=== PATIENT | female | born 1935 | race Caucasian/White ===

== ENCOUNTER → 2022-12-14 | Outpatient (REF) | payer OTHER, SELFPAY ==
[2022-12-14 09:13] LABS: Hematocrit 37.1 % (37-47); Hemoglobin 12.9 g/dL (12.0-15.0); Mean Corp Hgb Conc 34.8 g/dL (32-36); Mean Corpuscular Hgb 30.3 pg (27.0-32.0); Mean Corpuscular Volume 87.1 fL (81-99); Platelet Count 308 K/mm3 (150-450); RBC Distribution Width CV 13.2 % (11.6-14.6); RBC Distribution Width SD 42.4 fl (35.1-43.9); Red Blood Count 4.26 M/mm3 (4.2-5.4); White Blood Count 7.2 K/mm3 (4.4-11.0)
[2022-12-14 09:56] LABS: Anion Gap 9 (5-15); BUN 21 mg/dL (7-18); Calcium,Total 8.7 mg/dL (8.5-10.1); Chloride 86 mmol/L (98-107); Creatinine, Serum 0.62 mg/dL (0.55-1.02); EST Glomerular Filtration Rate 98 mL/min (>60); Est Glom Filt Rate - Afr Amer 118 mL/min (>60); Glucose 114 mg/dL (74-106); Potassium 4.7 mmol/L (3.5-5.1); Sodium Level 120 mmol/L (136-145); Thyroid Stim Hormone (TSH) 0.94 uIU/mL (0.358-3.74)
== END ==
LOC: OLS.SANC 05:54
PROVIDERS: Visit Provider Internal Medicine
DX: I11.0 Hypertensive heart disease with heart failure (principal); I50.9 Heart failure, unspecified; J44.9 Chronic obstructive pulmonary disease, unspecified; E78.5 Hyperlipidemia, unspecified; E11.9 Type 2 diabetes mellitus without complications
CPT/HCPCS: 36415; 80048; 82306; 84443; 85027

== ENCOUNTER → 2022-12-15 | Outpatient (REF) | payer MEDICARE, SELFPAY ==
[2022-12-15 14:58] LABS: Anion Gap 7 (5-15); BUN 24 mg/dL (7-18); BUN/Creat Ratio 27.8 RATIO (10-20); Calcium,Total 8.4 mg/dL (8.5-10.1); Chloride 88 mmol/L (98-107); Creatinine, Serum 0.86 mg/dL (0.55-1.02); EST Glomerular Filtration Rate 66 mL/min (>60); Est Glom Filt Rate - Afr Amer 80 mL/min (>60); Glucose 150 mg/dL (74-106); Sodium Level 116 mmol/L (136-145)
== END ==
LOC: OLS.SANC 14:00
PROVIDERS: Visit Provider Internal Medicine
DX: E87.1 Hypo-osmolality and hyponatremia (principal)
CPT/HCPCS: 36415; 80048

== ENCOUNTER → 2023-01-02 | Outpatient (REF) | payer MEDICARE, SELFPAY ==
[2023-01-02 08:38] LABS: Hematocrit 32.8 % (37-47); Hemoglobin 11.1 g/dL (12.0-15.0); Mean Corp Hgb Conc 33.8 g/dL (32-36); Mean Corpuscular Hgb 31.6 pg (27.0-32.0); Mean Corpuscular Volume 93.4 fL (81-99); Mean Platelet Vol. 9.7 fl (6.2-12.0); Platelet Count 367 K/mm3 (150-450); RBC Distribution Width CV 14.7 % (11.6-14.6); RBC Distribution Width SD 50.3 fl (35.1-43.9); Red Blood Count 3.51 M/mm3 (4.2-5.4); White Blood Count 6.9 K/mm3 (4.4-11.0)
[2023-01-02 08:51] LABS: ALB/GLOB Ratio 0.9 RATIO (0.9-2.4); AST(SGOT) 28 U/L (15-37); Alanine Aminotransfer ALT/SGPT 54 U/L (13-56); Alkaline Phosphatase 111 U/L (45-117); Anion Gap 5 (5-15); BUN 26 mg/dL (7-18); BUN/Creat Ratio 36.7 RATIO (10-20); Calcium,Total 9.4 mg/dL (8.5-10.1); Chloride 104 mmol/L (98-107); Creatinine, Serum 0.71 mg/dL (0.55-1.02); EST Glomerular Filtration Rate 83 mL/min (>60); Est Glom Filt Rate - Afr Amer 101 mL/min (>60); Globulin 3.3 g/dL (2.2-4.2); Glucose 124 mg/dL (74-106); Protein, Total 6.3 g/dL (6.4-8.2); Sodium Level 136 mmol/L (136-145)
== END ==
LOC: OLS.SANC 05:00
PROVIDERS: Visit Provider Internal Medicine
DX: E11.9 Type 2 diabetes mellitus without complications (principal); I10 Essential (primary) hypertension
CPT/HCPCS: 36415; 80053; 85027

== ENCOUNTER → 2023-01-17 | Outpatient (REF) | payer MEDICARE, SELFPAY ==
[2023-01-17 10:01] LABS: Anion Gap 6 (5-15); BUN 25 mg/dL (7-18); BUN/Creat Ratio 32.9 RATIO (10-20); Calcium,Total 9.1 mg/dL (8.5-10.1); Chloride 106 mmol/L (98-107); Creatinine, Serum 0.76 mg/dL (0.55-1.02); EST Glomerular Filtration Rate 77 mL/min (>60); Est Glom Filt Rate - Afr Amer 93 mL/min (>60); Glucose 115 mg/dL (74-106); Potassium 3.8 mmol/L (3.5-5.1); Sodium Level 140 mmol/L (136-145)
== END ==
LOC: OLS.SANC 05:00
PROVIDERS: Visit Provider Internal Medicine
DX: I11.0 Hypertensive heart disease with heart failure (principal); I50.9 Heart failure, unspecified; J44.9 Chronic obstructive pulmonary disease, unspecified; E78.5 Hyperlipidemia, unspecified; E11.9 Type 2 diabetes mellitus without complications
CPT/HCPCS: 36415; 80048

== ENCOUNTER 2023-02-14 16:57 | Observation (INO) | payer MEDICARE, SELFPAY ==
[2023-02-14 17:02] VITALS: BP 159/107; PULSE 77; RESP 18; TEMP 36.2; O2SAT 94; BMI 25.9
--- NOTE | 2023-02-14 17:36 | CT_ITS ---
STUDY: CT BRAIN WITHOUT CONTRAST REASON FOR EXAM: Female, 87 years old. Headache RADIATION DOSAGE (If Supplied By Facility): CTDIvol = ( 44.99 ) mGy, DLP = ( 796.11 ) mGycm TECHNIQUE: Transaxial CT imaging of the brain was performed without administration of intravenous contrast material. Individualized dose optimization techniques were used for this CT. COMPARISON: No relevant priors. FINDINGS: Normal soft tissue structures. Normal calvarium. Normal size ventricles and extra-axial spaces for the patient''s age. There are areas of decreased attenuation within the white matter tracts of the supratentorial brain, consistent with microvascular disease changes. Normal basal ganglia and thalami. Normal brainstem. Normal cerebellum. There is no intracranial hemorrhage. There are no findings of an acute ischemic infarction. Normal visualized paranasal sinuses. CT/Brain/Head without Contrast IMPRESSION: Chronic involutional changes of the brain. Electronically Signed: Dewey Banks MD at 18:33 EST ,
--- NOTE | 2023-02-14 17:36 | EKG12_ITS ---
Test Reason : WEAKNESS Blood Pressure : / mmHG Vent. Rate : 073 BPM Atrial Rate : 073 BPM P-R Int : 136 ms QRS Dur : 088 ms QT Int : 434 ms P-R-T Axes : 043 -52 091 degrees QTc Int : 478 ms Normal sinus rhythm Left anterior fascicular block Moderate voltage criteria for LVH, may be normal variant ( R in aVL , Manoj product ) Nonspecific ST and T wave abnormality Prolonged QT Abnormal ECG Confirmed by SKIP RODGERS, KANDACE ([id number]), assistant film editor STORMY ABEBE ([id number]) on 02/20/2023 1:40:44 P M Referred By: Confirmed By:RADHA VALDIVIA MD
--- NOTE | 2023-02-14 17:38 | EDS_ITS ---
HPI History of Present Illness Chief Complaint: Weakness Informant: patient Narrative Narrative: Presents by EMS from home. She lives with her daughter. Reports progressive weakness over the 5 to 6 months. She ambulates with a rollator at baseline. Today had a lot more difficulty stating took all my energy to get up. New headache today denies head trauma. Denies cough. Denies vomiting diarrhea. States occasional hot and cold feelings however none currently. She states has changed from urine frequency to decreased urine output and that is normal for her. Denies dysuria. History of hypertension on medications but cannot recall her medications. She states she is on sodium tabs. There is been no falls. States she has generalized weakness. [facility] Medical History (Updated 02/14/23 @ 22:[address] Katharine Sotro MD) Anxiety Chronic constipation Chronic hyponatremia GERD (gastroesophageal reflux disease) HLD (hyperlipidemia) HTN (hypertension) Home Medications albuterol sulfate 2.5 mg/3 mL (0.083 %) solution for nebulization mg 02/14/23 [History Last Taken Unknown] aspirin 81 mg tablet,delayed release (Adult Low Dose Aspirin) 81 mg PO DAILY 02/14/23 [History Last Taken Unknown] atorvastatin 40 mg tablet 40 mg PO DAILY 02/14/23 [History Last Taken Unknown] buspirone 10 mg tablet 10 mg PO DAILY 02/14/23 [History Last Taken Unknown] carvedilol 25 mg tablet 25 mg PO BID 02/14/23 [History Last Taken Unknown] doxycycline monohydrate 100 mg tablet 100 mg PO BID 02/14/23 [History Last Taken Unknown] gabapentin 400 mg capsule 400 mg PO TID 02/14/23 [History Last Taken Unknown] lisinopril 40 mg tablet 40 mg PO DAILY 02/14/23 [History Last Taken Unknown] omeprazole 20 mg capsule,delayed release 20 mg PO BID 02/14/23 [History Last Taken Unknown] sodium chloride 1,000 mg soluble tablet 1,000 mg PO TID 02/14/23 [History Last Taken Unknown] torsemide 10 mg tablet 10 mg PO DAILY 02/14/23 [History Last Taken Unknown] Allergy/AdvReac Type Severity Reaction Status Date / Time No Known Allergies Allergy Verified 02/14/23 17:05 Family History (Updated 02/14/23 @ 22:[address] Katharine Sorto MD) Mother Lung cancer COPD (chronic obstructive pulmonary disease) Father Heart disease Hypertension CAD (coronary artery disease) Myocardial infarction Surgical History (Updated 02/14/23 @ 22:[address] Katharine Sorto MD) History of tubal ligation S/P appendectomy Social History (Updated 02/14/23 @ 22:[address] Katharine Sorto MD) household members: other details: Her daughter lives with her but works 10 hours/day thus is gone frequently. Smoking Status: Never smoker second hand exposure: Yes alcohol intake: never substance use type: does not use ROS ROS ED Constitutional Constitutional ED: Denies chills, fever(s) or sweats Eyes Eyes: Denies change in vision ENT ENT ED: Denies dysphagia or sore throat Cardiovascular Cardiovascular: Denies chest pain, leg edema, palpitations or racing heartbeat Respiratory/Chest Respiratory/Chest: Denies cough, dyspnea or dyspnea on exertion Gastrointestinal Gastrointestinal: Denies abdominal pain, diarrhea, nausea or vomiting Genitourinary Genitourinary ED: Denies dysuria, hematuria or urinary frequency Musculoskeletal Musculoskeletal: Denies back pain, extremity pain or neck pain Integumentary Denies rash or wounds Neurologic Neurologic: Reports headache(s) and weakness; Denies paresthesias EXAM Physical Exam Const Vital Signs: 02/14/23 17:02 02/14/23 17:07 02/14/23 21:15 Temperature 97.2 F L Temperature Source Oral Pulse Rate 77 88 Respiratory Rate 18 18 Respiratory Effort Normal Non-Labored Respiratory Pattern Normal Blood Pressure 159/107 H 170/106 H Blood Pressure Mean 124 127 Pulse Ox 94 Oxygen Delivery Method Room Air Room Air 02/14/23 21:41 Temperature Temperature Source Pulse Rate Respiratory Rate Respiratory Effort Respiratory Pattern Blood Pressure 192/77 H Blood Pressure Mean 115 Pulse Ox Oxygen Delivery Method Positive well nourished and well developed General Appearance ED: well developed and NAD HEENT HEENT Narrative: Mild dry mucosal membranes normocephalic and atraumatic Eyes PERRL, EOMs intact bilaterally and conjunctivae normal General Eye ED: Yes normal appearance of both eyes Neck no lymphadenopathy and supple Neck Narrative: No meningismus General: Negative for tenderness Chest Wall Chest: Negative for tenderness Resp normal respiratory effort and normal air movement Effort and Inspection: symmetric chest movement; Negative for respiratory d istress Cardio regular rate, regular rhythm and no murmurs Peripheral Pulses: pulses 2+ throughout GI normal to inspection, nondistended, normoactive bowel sounds and non-tender Palpation: Negative for guarding or rebound tenderness present Back/Spine no CVA tenderness and no thoracic nor lumbar tenderness Extremity normal to inspection General Extremety ED: Negative for edema or tenderness General Extremity: Negative for edema Neuro oriented x3, CN's II-XII intact bilaterally and no sensory deficits noted Sensorium / Orientation: awake and alert Skin no rashes or lesions noted and no wounds MDM MDM MDM Narrative Medical decision making narrative: Interventions / MDM: Differential diagnosis: Infectious findings, electrolyte abnormalities Diagnosis considered but do not suspect: Intracranial hemorrhage however CT negative. Pneumonia however CT chest also negative. My EKG interpretation: Sinus rate of 73, no ST or T wave changes. LVH according to voltage criteria. Imaging independently reviewed and interpreted by myself: CT brain: No acute process. Chest x-ray 2 views: Question right middle lobe infiltrate or atelectasis per radiology. CTA chest: No PE, no infiltrates left lower lobe scarring. External documents reviewed: N/A Test considered but not ordered:N/A ED course: Patient presenting progressive weakness nontraumatic headache. No cough or urine symptoms. Workup initiated. CT brain labs COVID testing and urine along with 2 view chest x-ray. 2 view chest x-ray per radiology concerns for right middle lobe collapse lung or infiltrative findings. Recommend CT scan. This was ordered for further evaluation. In the interim, daughter did come to the emergency department stating she was at [facility] 3 days ago she is currently on antibiotics for pneumonia however denied any cough symptoms at that time. She is had generalized weakness with no falls. Labs normal white count hemoglobin 13.4 COVID and flu negative urine only notes 25 leukocytes, culture sent. Potassium 3.4. Creatinine 0.82. Potassium was orally replaced. CTA chest negative for infiltrates there is noted scarring's. She is not hypoxic. 2149: Attempted ambulation by nursing with a walker, she went up bedside was too weak per nursing unsteady. She bedside commode was used. Patient with generalized weakness no clear findings. Will discuss with hospitalist service for admission for therapy evaluation for rehab. Discussed plan of care with patient and daughter who understands. Discussed with Dr. Sorto for admission. Re-evaluation: stable Disposition discussed with patient/family/significant other: Patient and daughter Case discussed with consulting clinician: Hospitalist This note was generated with [employer] dictation software. It may contain incorrect words, spelling, and punctuation that were not noted in checking the note before signing. Lab Data Attestation: I reviewed the patient's lab results. Labs: Laboratory Results - last 24 hr 02/14/23 02/14/23 18:00 18:05 WBC 6.0 RBC 4.33 Hgb 13.4 Hct 40.6 MCV 93.8 MCH 30.9 MCHC 33.0 RDW Std Deviation 49.2 H RDW Coeff of Champ 14.3 Plt Count 337 MPV 9.6 Immature Gran % (Auto) 0.200 Neut % (Auto) 75.0 H Lymph % (Auto) 15.1 L [place] % (Auto) 8.1 Eos % (Auto) 1.3 Baso % (Auto) 0.3 Absolute Neuts (auto) 4.5 Absolute Lymphs (auto) 0.90 Nucleated RBC % 0 Sodium 141 Potassium 3.4 L Chloride 104 Carbon Dioxide 31.0 Anion Gap 6 BUN 17 Creatinine 0.82 Estim Creat Clear Calc 38.95 Est GFR (MDRD) Af Amer 85 Est GFR (MDRD) Non-Af 70 BUN/Creatinine Ratio 20.7 H Glucose 123 H Calcium 9.2 Urine Color Yellow Urine Clarity Sl. Cloudy Urine pH 6.5 Ur Specific [place] 1.020 Urine Protein 500 H Urine Glucose (UA) Normal Urine Ketones 5 H Urine Occult Blood 10 H Urine Nitrite Negative Urine Bilirubin Negative Urine Urobilinogen Normal Ur Leukocyte Esterase 25 H Urine RBC 0-5 SEEN Urine WBC 0-5 SEEN Ur Squamous Epith Cells 0 SEEN Urine Bacteria 0 SEEN Urine Mucus 0 SEEN Radiography Diagnostic Testing: Clinical Impression(s) from Imaging Studies Brain CT 02/14/23 17:36 IMPRESSION: Chronic involutional changes of the brain. Electronically Signed: Dewey Banks MD at 18:33 EST , Chest X-Ray 02/14/23 18:06 IMPRESSION: Right middle lobe infiltrate or collapse. Consider CT for further evaluation. Left perihilar and lower lung atelectasis or infiltrate. Electronically Signed: Dewey Banks MD at 18:36 EST , Chest CTA 02/14/23 19:34 IMPRESSION: CTA chest examination, without a demonstrated pulmonary embolism or arterial dissection. Left mid and bilateral lower lung scarring or atelectasis. Prominent epicardial fat pad and elevation of the right hemidiaphragm contributing to x-ray abnormality. Electronically Signed: Dewey Banks MD at 21:29 EST , Discharge Plan Dx/Rx/DC Orders Clinical Impression: Weakness, Elevated blood pressure reading in office with diagnosis of hypertension, Hypokalemia Disposition Disposition: Acute Care Hospital [facility]
--- NOTE | 2023-02-14 17:42 | NURSING ---
NO OLD EKGS
[2023-02-14] MEDS: 0.9% Normal Saline (500mL Bag) 500 ML 1000 ML IV (17:58)
--- NOTE | 2023-02-14 18:06 | RAD_ITS ---
STUDY: X-RAY CHEST REASON FOR EXAM: Female, 87 years old. Weakness TECHNIQUE: Frontal and lateral views of the chest. COMPARISON: None. FINDINGS: There are monitoring devices. There are mild left perihilar and lower lung increased opacities. There is right middle lobe consolidation. There is no demonstrated pleural abnormality. Normal size heart. Normal mediastinum and sudhir. Normal visualized pulmonary arteries. Normal visualized aortic arch and descending thoracic aorta. There is demineralization of the osseous structures. There are diffuse degenerative changes of the visualized thoracic spine. Normal visualized ribs, clavicles, and shoulders. There is no demonstrated abnormality of the visualized soft tissue structures of the upper abdomen. RAD/Chest PA and Lateral IMPRESSION: Right middle lobe infiltrate or collapse. Consider CT for further evaluation. Left perihilar and lower lung atelectasis or infiltrate. Electronically Signed: Dewey Banks MD at 18:36 EST ,
[2023-02-14 18:14] LABS: Bacteria 0 SEEN /hpf (None Seen); Mucous, Urine 0 SEEN /hpf (<or=2+); Squamous Epithelial Cells - UA 0 SEEN /hpf (5-10)
[2023-02-14 18:17] LABS: Color, Urine Yellow (Yellow); Glucose, Dipstick Normal (Normal); Ketone-Dipstick 5 mg/dl (Negative); Leukocyte Esterase-Dipstick 25 /ul (Negative); Nitrite-Dipstick Negative (Negative); Occult Blood-Urine 10 /ul (Negative); Protein-Dipstick 500 mg/dl (Negative); Urine Bilirubin Dipstick Negative (Negative); Urine Clarity Sl. Cloudy (Clear); Urine Urobilinogen Normal (Normal); Urine pH 6.5 (5.0 - 8.0)
[2023-02-14 18:19] LABS: Absolute Neutrophil Count 4.5 X10^3/uL (2.0-7.7); Basophil# 0.02 X10^3/uL; Basophil% 0.3 % (0-1); Eosinophil# 0.08 X10^3/uL; Eosinophils% 1.3 % (0-5); Hematocrit 40.6 % (37-47); Hemoglobin 13.4 g/dL (12.0-15.0); Lymphocyte % 15.1 % (19-41); Mean Corpuscular Hgb 30.9 pg (27.0-32.0); Mean Corpuscular Volume 93.8 fL (81-99); Mean Platelet Vol. 9.6 fl (6.2-12.0); Monocyte# 0.48 X10^3/uL; Monocyte% 8.1 % (0-10); NRBC Flagged by Analyzer 0 % (0-5); Neutrophil # 4.47 X10^3/uL (2.7-7.7); Platelet Count 337 K/mm3 (150-450); RBC Distribution Width CV 14.3 % (11.6-14.6); RBC Distribution Width SD 49.2 fl (35.1-43.9); Red Blood Count 4.33 M/mm3 (4.2-5.4)
[2023-02-14 18:23] LABS: Red Blood Cells-Urine 0-5 SEEN /hpf (0-5); White Blood Cells 0-5 SEEN /hpf (0-5)
[2023-02-14 18:37] LABS: Anion Gap 6 (5-15); BUN 17 mg/dL (7-18); BUN/Creat Ratio 20.7 RATIO (10-20); Calcium,Total 9.2 mg/dL (8.5-10.1); Chloride 104 mmol/L (98-107); Creatinine, Serum 0.82 mg/dL (0.55-1.02); EST Glomerular Filtration Rate 70 mL/min (>60); Est Glom Filt Rate - Afr Amer 85 mL/min (>60); Estimated Creatinine Clearance 38.95 ml/min; Glucose 123 mg/dL (74-106); Potassium 3.4 mmol/L (3.5-5.1); Sodium Level 141 mmol/L (136-145)
[2023-02-14] MEDS: Ondansetron 4 MG/2 ML Vial IV (18:37)
--- NOTE | 2023-02-14 19:34 | CT_ITS ---
STUDY: CTA CHEST REASON FOR EXAM: Female, 87 years old. Dyspnea -- abnormal CXR RADIATION DOSAGE (If Supplied By Facility): CTDIvol = ( 11.06 ) mGy, DLP = ( 452.82 ) mGycm TECHNIQUE: The examination was performed with the intravenous administration of 100mL [id number]-[id number]. Post-processing of the angiographic images was performed, with multiplanar reformation and 3D reconstruction. Individualized dose optimization techniques were used for this CT. COMPARISON: Chest x-ray FINDINGS: Normal enhancement of the main pulmonary artery and right and left pulmonary arteries. Normal enhancement of the bilateral peripheral pulmonary arteries. There is no demonstrated pulmonary embolism. There is atherosclerotic calcification of the aortic arch with tortuosity. There is no demonstrated aortic dissection. There are calcifications of the coronary arteries. Normal mediastinum. Normal hilar regions. Normal visualized trachea and bronchi. The lungs are well expanded. There is left mid and lower lung scarring or atelectasis. There is mild right lower lung scarring or atelectasis. There is elevation of the anterior right hemidiaphragm and prominent epicardial fat pad contributing to chest x-ray abnormality. Normal pleura. Normal chest wall structures. There are degenerative changes of thoracic spine. Normal visualized upper abdomen. CT/CTA Chest W/WO Contrast IMPRESSION: CTA chest examination, without a demonstrated pulmonary embolism or arterial dissection. Left mid and bilateral lower lung scarring or atelectasis. Prominent epicardial fat pad and elevation of the right hemidiaphragm contributing to x-ray abnormality. Electronically Signed: Dewey Banks MD at 21:29 [facility] ,
[2023-02-14 21:15] VITALS: BP 170/106; PULSE 88; RESP 18
[2023-02-14] MEDS: Potassium Chloride Oral Tablet 20 MEQ 40 MEQ PO (21:18)
[2023-02-14 21:41] VITALS: BP 192/77
--- NOTE | 2023-02-14 22:01 | HP.PCM.HOS_ITS ---
HPI - General General Date of Admission: 02/14/23 Date of Service: 02/14/23 Chief Complaint: Weakness, debility, progressing decline. HPI Narrative The patient is an 87 y/o F w/ PMHx: HTN, HLD, Anxiety, GERD, Chronic Hyponatremia who presents to the [facility] ED on 02/14/23 with history of currently living with her daughter with progressive weakness for the last 5 to 6 months normal using a rollator at baseline however on day of presentation she has had significantly more difficulty with all ambulation attempts with onset of mild headache on day of presentation with no recent cough, emesis, diarrhea with decreased urine output however she has had decreased oral intake and denies any associated dysuria reported that she is also on chronic sodium tablets with no specific falls but given weakness prompted daughter to bring her in for eval uation. From review of patient outside medication she was started on Augmentin 875 mg p.o. twice daily for 7-day regimen on 02/11/2023 as well as concurrently doxycycline 100 mg p.o. twice daily for PNA following evaluation at [facility] secondary to CXR findings most likely. Workup in the ED included T97.2, heart rate 77, BP 159/107, respiratory rate 18, 94% on room air, CBC with WBC 6.0, hemoglobin 13.4, platelet 337 without significant left shift, BMP with potassium 3.4, glucose 123, urinalysis with specific gravity 1.020, protein 500, ketone 5, occult blood 10, negative nitrate, leukocyte Estrace 25 with no urine RBC, WBC or urine bacteria noted, urine culture pending per ED, SARS COVID and flu antigen negative, CT of the brain with chronic involutional changes, chest x-ray with a right middle lobe infiltrate versus collapse, left perihilar and lower lung atelectasis versus infiltrate, EKG was sinus rhythm with no acute evidence of ischemia, follow-up CTA chest with no demonstrated PE or arterial dissection with left mid and bilateral lower lung scarring or atelectasis, prominent epicardial fat pad and elevation of the right hemidiaphragm contributing to the x-ray abnormalities with no obvious evidence of infiltrate. In the ED patient ministered normal saline and 4 mg IV Zofran x 1. In the ED patient ministered Zofran 4 mg IV x 1 as well as potassium 40 mill equivalent p.o. x 1. [facility] Medical History (Updated 02/14/23 @ 22:[address] Katharine Sorto MD) Anxiety Chronic constipation Chronic hyponatremia GERD (gastroesophageal reflux disease) HLD (hyperlipidemia) HTN (hypertension) Home Medications albuterol sulfate 2.5 mg/3 mL (0.083 %) solution for nebulization mg 02/14/23 [History Last Taken Unknown] aspirin 81 mg tablet,delayed release (Adult Low Dose Aspirin) 81 mg PO DAILY 02/14/23 [History Last Taken Unknown] atorvastatin 40 mg tablet 40 mg PO DAILY 02/14/23 [History Last Taken Unknown] buspirone 10 mg tablet 10 mg PO DAILY 02/14/23 [History Last Taken Unknown] carvedilol 25 mg tablet 25 mg PO BID 02/14/23 [History Last Taken Unknown] doxycycline monohydrate 100 mg tablet 100 mg PO BID 02/14/23 [History Last Taken Unknown] gabapentin 400 mg capsule 400 mg PO TID 02/14/23 [History Last Taken Unknown] lisinopril 40 mg tablet 40 mg PO DAILY 02/14/23 [History Last Taken Unknown] omeprazole 20 mg capsule,delayed release 20 mg PO BID 02/14/23 [History Last Taken Unknown] sodium chloride 1,000 mg soluble tablet 1,000 mg PO TID 02/14/23 [History Last Taken Unknown] torsemide 10 mg tablet 10 mg PO DAILY 02/14/23 [History Last Taken Unknown] Allergy/AdvReac Type Severity Reaction Status Date / Time No Known Allergies Allergy Verified 02/14/23 17:05 Family History (Updated 02/14/23 @ 22:[address] Katharine Sorto MD) Mother Lung cancer COPD (chronic obstructive pulmonary disease) Father Heart disease Hypertension CAD (coronary artery disease) Myocardial infarction Surgical History (Updated 02/14/23 @ 22:[address] Katharine Sorto MD) History of tubal ligation S/P appendectomy Social History (Updated 02/14/23 @ 22:[address] Katharine Sorto MD) household members: other details: Her daughter lives with her but works 10 hours/day thus is gone frequently. Smoking Status: Never smoker second hand exposure: Yes alcohol intake: never substance use type: does not use ROS ROS Narrative Admission Review of Systems: CONSTITUTIONAL: No weight loss, fever, chills, + weakness or fatigue. HEENT: Eyes: No visual loss, blurred vision, double vision or yellow sclerae. Ears, Nose, Throat: No hearing loss, sneezing, congestion, runny nose or sore throat. SKIN: + Very staged ecchymoses, abrasions. CARDIOVASCULAR: No chest pain, chest pressure or chest discomfort, palpitations, edema, orthopnea, syncopal events. RESPIRATORY: No shortness of breath, cough or sputum, wheezing, hemoptysis. GASTROINTESTINAL: + anorexia, chronic constipation. No nausea, vomiting or diarrhea, abdominal pain, melena, BRBPR. GENITOURINARY: No dysuria, frequency, urgency or retention. NEUROLOGICAL: No headache, dizziness, syncope, paralysis, ataxia, numbness or tingling in the extremities, focal weakness, change in bowel or bladder control, seizure. MUSCULOSKELETAL: + muscle, back pain, joint pain or stiffness. HEMATOLOGIC: No anemia. + Easy bleeding and bruising. LYMPHATICS: No enlarged nodes. No history of splenectomy. PSYCHIATRIC: + History of anxiety, suspect also depression. ENDOCRINOLOGIC: No reports of sweating, cold or heat intolerance. No polyuria or polydipsia. ALLERGIES: No history of asthma, hives, eczema or rhinitis. Vital Signs Vital Signs Vital Signs: 02/14/23 17:02 02/14/23 17:07 02/14/23 21:15 Temperature 97.2 F L Temperature Source Oral Pulse Rate 77 88 Respiratory Rate 18 18 Respiratory Effort Normal Non-Labored Respiratory Pattern Normal Blood Pressure 159/107 H 170/106 H Blood Pressure Mean 124 127 Pulse Ox 94 Oxygen Delivery Method Room Air Room Air 02/14/23 21:41 Temperature Temperature Source Pulse Rate Respiratory Rate Respiratory Effort Respiratory Pattern Blood Pressure 192/77 H Blood Pressure Mean 115 Pulse Ox Oxygen Delivery Method Weight Weight: 141 lb 15.643 oz Body Mass Index (BMI) 25.9 Physical Exam Narrative Physical Examination: General: Awake, alert, oriented x 3 and cooperative, seated upright in the ED bed, fatigued otherwise no acute distress. Skin: Normal color, normal turgor, no icterus, no cyanosis except for notable very staged abrasions and ecchymoses to the extremities. HEENT: AT/NC, EOMI, PERRLA, mildly dry MM, no carotid bruits or JVD noted. Lungs: CTA bilaterally, moderate effort, mild decrease BL bases, no rales, ronchi or wheezing. Heart: Regular rate and rhythm; no gallop, rub audible. Abdomen: Soft, NTTP, ND, mildly hyperactive BS, no HSM. Extremities: No cyanosis, no clubbing, mild peripheral ankle not markedly pitting edema, see skin. Neurological: Patient awake, alert, oriented as noted, cognitive function appears baseline intact; pupils equally reactive to light and accommodation, cranial nerves grossly normal, moving all 4 extremities, no focal deficits, strength moderately to severely globally decreased. Psychiatric: Affect appears flat, fatigued, does have underlying history of anxiety, suspect also possibly depression. Results Lab / Micro Data 02/14/23 18:05 02/14/23 18:05 Labs: Laboratory Results - last 24 hr 02/14/23 18:00: Urine Color Yellow, Urine Clarity Sl. Cloudy, Urine pH 6.5, Ur Specific [place] 1.020, Urine Protein 500 H, Urine Glucose (UA) Normal, Urine Ketones 5 H, Urine Occult Blood 10 H, Urine Nitrite Negative, Urine Bilirubin Negative, Urine Urobilinogen Normal, Ur Leukocyte Esterase 25 H, Urine RBC 0-5 SEEN, Urine WBC 0-5 SEEN, Ur Squamous Epith Cells 0 SEEN, Urine Bacteria 0 SEEN, Urine Mucus 0 SEEN 02/14/23 18:05: WBC 6.0, RBC 4.33, Hgb 13.4, Hct 40.6, MCV 93.8, MCH 30.9, MCHC 33.0, RDW Std Deviation 49.2 H, RDW Coeff of Champ 14.3, Plt Count 337, MPV 9.6, Immature Gran % (Auto) 0.200, Neut % (Auto) 75.0 H, Lymph % (Auto) 15.1 L, [place] % (Auto) 8.1, Eos % (Auto) 1.3, Baso % (Auto) 0.3, Absolute Neuts (auto) 4.5, Absolute Lymphs (auto) 0.90, Nucleated RBC % 0, Sodium 141, Potassium 3.4 L, Chloride 104, Carbon Dioxide 31.0, Anion Gap 6, BUN 17, Creatinine 0.82, Estim Creat Clear Calc 38.95, Est GFR (MDRD) Af Amer 85, Est GFR (MDRD) Non-Af 70, BUN/Creatinine Ratio 20.7 H, Glucose 123 H, Calcium 9.2 Micro: Microbiology 02/14/23 17:50 Nasal Secretion SARS-CoV-2 & FLU Antigen (Rapid) - Final Imagaing Radiology Impression Brain CT 02/14/23 17:36 IMPRESSION: Chronic involutional changes of the brain. Electronically Signed: Dewey Banks MD at 18:33 EST Reading Location ID and State: [facility] / [place] , Service support , Chest X-Ray 02/14/23 18:06 IMPRESSION: Right middle lobe infiltrate or collapse. Consider CT for further evaluation. Left perihilar and lower lung atelectasis or infiltrate. Electronically Signed: Dewey Banks MD at 18:36 EST Reading Location ID and State: [facility] / [place] , Service support , Chest CTA 02/14/23 19:34 IMPRESSION: CTA chest examination, without a demonstrated pulmonary embolism or arterial dissection. Left mid and bilateral lower lung scarring or atelectasis. Prominent epicardial fat pad and elevation of the right hemidiaphragm contributing to x-ray abnormality. Electronically Signed: Dewey Banks MD at 21:29 EST , Assessment & Plan Assessment/Plan (1) Adult failure to thrive: PLAN: Plan The patient is an 87 y/o F w/ PMHx: HTN, HLD, Anxiety, GERD, Chronic Hyponatremia who presents to the [facility] ED on 02/14/23 with history of currently living with her daughter with progressive weakness for the last 5 to 6 months normal using a rollator at baseline however on day of presentation she has had significantly more difficulty with all ambulation attempts with onset of mild headache on day of presentation with no recent cough, emesis, diarrhea with decreased urine output however she has had decreased oral intake and denies any associated dysuria reported that she is also on chronic sodium tablets with no specific falls but given weakness prompted daughter to bring her in for evaluation. #1. Weakness, debility with adult failure to thrive: Patient with progressive decline over the last several months with notably advanced age, will admit to [facility], will continue evaluation as noted, will maintain on fall and aspiration precautions, Respiratory viral panel requested to be cautious but again has been a steady decline and likely needs placement, respiratory panel requested to be cautious, will also obtain TSH/FT4, PT/OT/ST consulted as noted. #2. Atypical chest x-ray with initial concern for possible infiltrate versus collapse versus atelectasis, CTPA consistent with possibly lung scarring or atelectasis, RULED OUT PNA recently diagnosed at [facility]SH ED: Given atypical 6 chest x-ray findings with no recent history of fever nor marked WBC or left shift ED also obtained CTA chest with no demonstrated PE or arterial dissection with left mid and bilateral lower lung scarring or atelectasis, prominent epicardial fat pad and elevation of the right hemidiaphragm contributing to the x-ray abnormalities with no obvious evidence of infiltrate. Will hold abx therapy. #3. Hypokalemia: Admission K+ 3.4, magnesium level requested, supplementation given, repeat level in AM. #4. Hyperglycemia, mild: Admission glucose 123, only mildly elevated, continue to trend and if further elevated evaluate further. #5. Chronic hyponatremia: Will continue chronic Na tablets, admission sodium 141, specific gravity UA 1.020, will continue supplementation and repeat CMP in AM. #6. Hypertension: Continue home regimen including Coreg, torsemide, hydralazine, lisinopril although clarifying this regimen, PRN hydralazine. #7. Hyperlipidemia: Will continue patient home atorvastatin therapy. #8. Anxiety and suspect also possibly underlying depression: Will continue pa tient home BuSpar once clarified although from evaluation and from discussion with patient there is possibly also underlying depression. Patient daughter reported varying appetite although from discussion this may be related to the cooking but discussed and certainly if necessary can consider mirtazapine as a possible agent if needed. #9. Possible Chronic constipation: From current regimen appears the patient in the past has used lactulose, continue to monitor if necessary may utilize aggressive bowel regimen. #10. GERD: Will continue patient on PPI. #11. DVT prophylaxis: Lovenox. #12. CODE status: Patient HCPOA is her daughter but LW is not in place. Discussed concept of LW and noted they could review with SW/CM for assistance in setting up. Discussed CODE status at length including difference between FULL code, DNR-CCA and DNR-CC status. Following discussions about the differences in these status, requested DNR-CCA, no intubation, no aggressive measures. Advanced Care Planning Face to Face Time: 16 minutes. Charges/Coding Visit Charges Inpatient E&M: 96941 Init Hosp L2 Procedures Hospitalists Procedures: 99935 Advncd Care Plan 30 Min
[2023-02-14 22:22] VITALS: BP 200/74; PULSE 75; RESP 18; O2SAT 94
[2023-02-14 23:21] VITALS: BP 144/106; PULSE 80; RESP 20; O2SAT 93
[2023-02-14 23:49] VITALS: BMI 25.0
[2023-02-14 23:57] LABS: Magnesium 1.8 mg/dL (1.6-2.6)
[2023-02-15 00:01] VITALS: BP 145/91; PULSE 85; RESP 18; TEMP 36.9; O2SAT 95
[2023-02-15] MEDS: Menthol/Lanolin/Calamine/Znox 113 GM Tube 1 APPLIC TOPICAL ×3 (00:55→13:39)
[2023-02-15] MEDS: MELATONIN 3 MG TABLET PO (00:55)
[2023-02-15] MEDS: Gabapentin 400 MG Capsule PO ×3 (00:55→13:39)
[2023-02-15] MEDS: Carvedilol 25 MG Tablet PO ×3 (00:56→16:49)
[2023-02-15] MEDS: Pantoprazole Sodium 20 MG Tablet PO ×2 (00:56→08:11)
[2023-02-15] MEDS: Sodium Chloride 1 GM Tablet PO ×3 (00:56→13:39)
[2023-02-15 04:38] VITALS: BMI 25.1
[2023-02-15 05:40] VITALS: BP 113/46; PULSE 58; RESP 18; TEMP 36.4; O2SAT 93
--- NOTE | 2023-02-15 07:10 | PCM.PN.HOSP ---
Reason for Visit Reason for Visit: Progressively worsening weakness/failure to thrive Subjective Subjective Mrs. Dodson is an 87-year-old white female who presented to the emergency department [facility] on 02/14/2023 due to progressively worsening weakness and failure to thrive. She currently lives with her daughter and her daughter notes progressively worsening weakness over the last 5 to 6 months. Typically she uses a wheeled walker however on presentation she had significant more difficulty with ambulation. She also complained of a mild headache but had no other subjective symptoms. Her oral intake has declined per her daughter as well. She has had no falls. She was recently seen at [place] emergency department and treated with Augmentin and doxycycline for what was called a pneumonia. Vital signs on presentation demonstrated temperature 97.2, heart rate 77, blood pressure 159/107, respiratory rate is 18 oxygen saturations are 94% room air. CBC was unremarkable. BMP was overtly unremarkable other than some mild hypokalemia with potassium of 3.4. Her urinalysis showed a specific gravity of 1.02 and some ketones and I suspect she is dehydrated. It is not consistent with any signs of infection. COVID-19 and flu antigens are negative. CT of the brain showed chronic involutional changes but no acute changes. Chest x-ray shows right middle lobe infiltrate versus collapse and left perihilar lower lung atelectasis versus infiltrate. EKG was unremarkable for any evidence of acute ischemia. Follow-up chest CT showed no PE or arterial dissection but did show left mid and bilateral lower lung scarring versus atelectasis and no evidence of infiltrate. A urine culture was obtained and she was given normal saline and Zofran in the emergency department as well as oral potassium. She was admitted to the medical floor for weakness, progressive decline and debility and probable placement. She does have commercial Medicare products and will need pre-CERT prior to discharge. Objective Data Objective Data Vital Signs: Vital Signs Temp Pulse Resp BP Pulse Ox O2 Del Method 97.6 F L 58 L 18 113/46 L 93 Room Air 02/15/23 05:40 02/15/23 05:40 02/15/23 05:40 02/15/23 05:40 02/15/23 05:40 02/15/23 05:40 Oxygen Delivery Method Room Air Weight: 61.9 kg Body Mass Index (BMI) 25.1 Intake & Output: Intake and Output for Last 24 Hours 12/11/23 12/12/23 12/13/23 23:59 23:59 23:59 Intake Total 500 / 550 50 / 50 Balance 500 / 550 50 / 50 Lab / Micro Data 02/14/23 18:05 02/14/23 18:05 Labs: Laboratory Results - last 24 hr 02/14/23 18:00: Urine Color Yellow, Urine Clarity Sl. Cloudy, Urine pH 6.5, Ur Specific [place] 1.020, Urine Protein 500 H, Urine Glucose (UA) Normal, Urine Ketones 5 H, Urine Occult Blood 10 H, Urine Nitrite Negative, Urine Bilirubin Negative, Urine Urobilinogen Normal, Ur Leukocyte Esterase 25 H, Urine RBC 0-5 SEEN, Urine WBC 0-5 SEEN, Ur Squamous Epith Cells 0 SEEN, Urine Bacteria 0 SEEN, Urine Mucus 0 SEEN 02/14/23 18:05: WBC 6.0, RBC 4.33, Hgb 13.4, Hct 40.6, MCV 93.8, MCH 30.9, MCHC 33.0, RDW Std Deviation 49.2 H, RDW Coeff of Champ 14.3, Plt Count 337, MPV 9.6, Immature Gran % (Auto) 0.200, Neut % (Auto) 75.0 H, Lymph % (Auto) 15.1 L, [place] % (Auto) 8.1, Eos % (Auto) 1.3, Baso % (Auto) 0.3, Absolute Neuts (auto) 4.5, Absolute Lymphs (auto) 0.90, Nucleated RBC % 0, Sodium 141, Potassium 3.4 L, Chloride 104, Carbon Dioxide 31.0, Anion Gap 6, BUN 17, Creatinine 0.82, Estim Creat Clear Calc 38.95, Est GFR (MDRD) Af Amer 85, Est GFR (MDRD) Non-Af 70, BUN/Creatinine Ratio 20.7 H, Glucose 123 H, Calcium 9.2, Magnesium 1.8 Micro: Microbiology 02/14/23 17:50 Nasal Secretion SARS-CoV-2 & FLU Antigen (Rapid) - Final Radiography Diagnostic Testing: Radiology Impression Brain CT 02/14/23 17:36 IMPRESSION: Chronic involutional changes of the brain. Electronically Signed: Dewey Banks MD at 18:33 EST , Chest X-Ray 02/14/23 18:06 IMPRESSION: Right middle lobe infiltrate or collapse. Consider CT for further evaluation. Left perihilar and lower lung atelectasis or infiltrate. Electronically Signed: Dewey Banks MD at 18:36 EST , Chest CTA 02/14/23 19:34 IMPRESSION: CTA chest examination, without a demonstrated pulmonary embolism or arterial dissection. Left mid and bilateral lower lung scarring or atelectasis. Prominent epicardial fat pad and elevation of the right hemidiaphragm contributing to x-ray abnormality. Electronically Signed: Dewey Banks MD at 21:29 EST , Assessment & Plan Assessment/Plan (1) Adult failure to thrive: (2) Weakness: (3) Debility: (4) Hypokalemia: PLAN: Plan Generalized weakness/debility/adult failure to thrive -Daughter reports significant progressive decline over the last several months -No longer able to care for her at home -TSH and free T4 pending -PT/OT/speech therapy consultation -Case management/social work consultation for placement needs Abnormal chest x-ray -Chest x-ray was suggestive of infiltrate however CT of the chest was performed and demonstrated scarring versus atelectasis with no pneumonia -No antibiotics required Hypokalemia -P.o. potassium given -A.m. repeat is pending Chronic hyponatremia -Sodium on admission was 141 but patient did appear to be slightly dehydrated with a urine specific gravity of 1.02 Was given some IV fluids emergency department -Continue home oral sodium tablets -Repeat sodium in pending Hypertension -Continue home Coreg, hydralazine, lisinopril, torsemide -Monitor Hyperlipidemia -Continue home atorvastatin Chronic constipation -Continue home regimen GERD -Continue home PPI Anxiety/depression -Will start low-dose Remeron 15 mg at at bedtime to help stimulate appetite and help with mood DVT prophylaxis -Continue subcu enoxaparin CODE STATUS -DNR CCA with no intubation as verified on admission Charges/Coding Visit Charges Inpatient E&M: 29901 Subs Hosp L2
[2023-02-15] MEDS: Aspirin E.C. 81 MG Tablet PO (08:09)
[2023-02-15 08:10] VITALS: BP 147/64; PULSE 70; RESP 16; TEMP 37.1; O2SAT 94
[2023-02-15] MEDS: Enoxaparin 40 MG/0.4 ML Syringe SC (08:10)
[2023-02-15] MEDS: busPIRone 5 MG Tablet 10 MG PO (08:10)
[2023-02-15] MEDS: Lisinopril 40 MG Tablet PO (08:11)
[2023-02-15] MEDS: Furosemide 20 MG Tablet PO (08:11)
[2023-02-15] MEDS: Ensure Plus High Protein 120 ML LIQUID PO ×3 (08:14→16:49)
[2023-02-15 08:34] LABS: Absolute Lymphocyte Count 0.92 X10^3/uL (0.83-4.51); Absolute Neutrophil Count 4.1 X10^3/uL (2.0-7.7); Basophil# 0.03 X10^3/uL; Basophil% 0.5 % (0-1); Eosinophil# 0.13 X10^3/uL; Eosinophils% 2.3 % (0-5); Hematocrit 36.8 % (37-47); Hemoglobin 11.7 g/dL (12.0-15.0); Lymphocyte # 0.92 X10^3/ul (0.83-4.51); Lymphocyte % 16.3 % (19-41); Mean Corp Hgb Conc 31.8 g/dL (32-36); Mean Corpuscular Volume 97.4 fL (81-99); Mean Platelet Vol. 9.6 fl (6.2-12.0); Monocyte# 0.47 X10^3/uL; Monocyte% 8.3 % (0-10); NRBC Flagged by Analyzer 0 % (0-5); Neutrophil # 4.09 X10^3/uL (2.7-7.7); Neutrophil % 72.2 % (47-70); Platelet Count 297 K/mm3 (150-450); RBC Distribution Width CV 14.5 % (11.6-14.6); RBC Distribution Width SD 51.7 fl (35.1-43.9); Red Blood Count 3.78 M/mm3 (4.2-5.4); White Blood Count 5.7 K/mm3 (4.4-11.0)
[2023-02-15 09:24] LABS: ALB/GLOB Ratio 1.3 RATIO (0.9-2.4); AST(SGOT) 24 U/L (15-37); Alanine Aminotransfer ALT/SGPT 26 U/L (13-56); Albumin, Serum 3.1 g/dL (3.2-5.0); Alkaline Phosphatase 82 U/L (45-117); Anion Gap 6 (5-15); BUN 18 mg/dL (7-18); BUN/Creat Ratio 20.2 RATIO (10-20); Calcium,Total 9.2 mg/dL (8.5-10.1); Chloride 110 mmol/L (98-107); Creatinine, Serum 0.89 mg/dL (0.55-1.02); EST Glomerular Filtration Rate 64 mL/min (>60); Est Glom Filt Rate - Afr Amer 77 mL/min (>60); Estimated Creatinine Clearance 35.89 ml/min; Globulin 2.4 g/dL (2.2-4.2); Glucose 99 mg/dL (74-106); Potassium 3.8 mmol/L (3.5-5.1); Protein, Total 5.5 g/dL (6.4-8.2); Sodium Level 142 mmol/L (136-145); T4 Free Direct 1.25 ng/dL (0.76-1.46); Thyroid Stim Hormone (TSH) 0.78 uIU/mL (0.358-3.74)
--- NOTE | 2023-02-15 12:30 | CASEMGMT ---
DEBRA MANTILLA NOTE: RN CM to room. Pt sitting up in chair in room. Introduced self and role. Noted pt is forgetful and per nursing and only oriented x 1-2 per nursing staff. Pt states her daughter lives w/her and helps to take care of her. She states dtr is working today, but states is okay for RN ANNALEE to call her to discuss her care/discharge planning. Call placed to dtr, Prateek. She was @ work but then called this RN ANNALEE back on her lunch break. Dtr verifies she lives w/pt. 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 She states they live in a 2-story home w/ramp entrance. [employer] and dtr states she does not allow pt to go upstairs. Dtr states, I can't be home w/her 26/09. I gotta work. She states pt has a shower chair, walker, and grab bars and pt is currently active w/[facility] for SN and therapy. She states she has not looked into seeing if pt qualifies for [facility], stating, They'll just take the house and she has not looked into Passport services/[facility]. Dtr made aware that therapy has worked w/pt and able to ambulate 110 ft and insurance would most likely not approve a SNF stay. Discussed Passport/[facility] w/her and she was agreeable to a referral being made. Aletha KULKARNI, aware. Also discussed [facility], [facility], and private-duty agencies for aides and made aware these resources would be placed in the packet in pt's room for her to take home. She was also made aware that pt is medically ready for discharge today. Dtr states she can come pick pt up after she gets off of work. Dtr plans to have HHC resume and states plans to look into some of the resources provided. She denies having further discharge planning needs or concerns at this time. The above mentioned resources placed in pt's room. Merline, content producer, to notify [facility] of pt's OBS admission to [facility] and that pt is being discharged back home today. Luis AMADOR RN, CM
--- NOTE | 2023-02-15 13:27 | DS.PCM_ITS ---
Providers Date of Admission: 02/14/23 Date of Discharge: 02/15/23 Primary Care Physician: Dr. Ilan Rob DO Reason For Visit: ADULT FTT Diagnosis Discharge Diagnosis (1) Adult failure to thrive: Status: Acute Code(s): R62.7 - Adult failure to thrive (2) Weakness: Status: Acute Code(s): R53.1 - Weakness (3) Debility: Status: Acute Code(s): R53.81 - Other malaise (4) Hypokalemia: Status: Acute Code(s): E87.6 - Hypokalemia Medications at Discharge Home Medications albuterol sulfate 2.5 mg/3 mL (0.083 %) solution for nebulization mg 02/14/23 aspirin 81 mg tablet,delayed release (Adult Low Dose Aspirin) 81 mg PO DAILY 02/14/23 atorvastatin 40 mg tablet 40 mg PO DAILY 02/14/23 buspirone 10 mg tablet 10 mg PO DAILY 02/14/23 carvedilol 25 mg tablet 25 mg PO BID 02/14/23 gabapentin 400 mg capsule 400 mg PO TID 02/14/23 lisinopril 40 mg tablet 40 mg PO DAILY 02/14/23 omeprazole 20 mg capsule,delayed release 20 mg PO BID 02/14/23 sodium chloride 1,000 mg soluble tablet 1,000 mg PO TID 02/14/23 torsemide 10 mg tablet 10 mg PO DAILY 02/14/23 Hospital Course Summary of Care Provided Hospital Course: Mrs. Dodson is an 87-year-old white female who presented to the emergency department [facility] on 02/14/2023 due to progressively worsening weakness and failure to thrive. She currently lives with her daughter and her daughter notes progressively worsening weakness over the last 5 to 6 months. Typically she uses a wheeled walker however on presentation she had significant more difficulty with ambulation. She also complained of a mild headache but had no other subjective symptoms. Her oral intake has declined per her daughter as well. She has had no falls. She was recently seen at [facility] emergency department and treated with Augmentin and doxycycline for what was called a pneumonia. Vital signs on presentation demonstrated temperature 97.2, heart rate 77, blood pressure 159/107, respiratory rate is 18 oxygen saturations are 94% room air. CBC was unremarkable. BMP was overtly unremarkable other than some mild hypokalemia with potassium of 3.4. Her urinalysis showed a specific gravity of 1.02 and some ketones and I suspect she is dehydrated. It is not consistent with any signs of infection. COVID-19 and flu antigens are negative. CT of the brain showed chronic involutional changes but no acute changes. Chest x-ray shows right middle lobe infiltrate versus collapse and left perihilar lower lung atelectasis versus infiltrate. EKG was unremarkable for any evidence of acute ischemia. Follow-up chest CT showed no PE or arterial dissection but did show left mid and bilateral lower lung scarring versus atelectasis and no evidence of infiltrate. A urine culture was obtained and she was given normal saline and Zofran in the emergency department as well as oral potassium. She was admitted to the medical floor for weakness, progressive decline and debility and possible placement. She was seen by physical and Occupational Therapy and was able to ambulate 110 feet and would not qualify for [facility] facility at discharge. She was already getting home health care in the home and further resources were provided for assistance as far as caregiving at home. We do understand that her daughter does have to work during the day so that is a concern. She was able to be discharged home in stable condition on 02/15/2023. We have advised to follow-up with her primary care physician within the next 1 to 2 weeks. Discharge diagnoses: Generalized weakness Debility Hypokalemia-resolved Hyperglycemia Chronic hyponatremia-stable Hypertension Hyperlipidemia Chronic constipation GERD Depression/anxiety Physical Exam Const alert, oriented x3, no apparent distress, average body habitus and well nourished Constitutional Narrative: Elderly, white female, sitting up in bed, therapy at bedside, appears comfortable and nontoxic, patient is alert and oriented however she seems to have a little bit of memory impairment General Appearance: cooperative, comfortable, well kempt and well developed Orientation / Consciousness: awake, oriented to person, oriented to place and oriented to time Exam Limitations: no limitations HEENT normocephalic and head/scalp atraumatic HEENT Narrative: Mild to moderate hearing loss Resp normal respiratory effort, no retractions, no use of accessory muscles and clear to auscultation bilaterally Auscultation: Negative for rales, rhonchi or wheezes Cardio regular rate, regular rhythm, S1 normal heart sound, S2 normal heart sound, no murmurs, no rub, no gallops and no clicks GI normal to inspection, nondistended, normoactive bowel sounds, soft to palpation and non-tender Extremity no clubbing, cyanosis or edema Extremity Narrative: Pedal pulses are 2+ Neuro oriented x3, moves all extremities and no focal motor deficits Neuro Narrative: Generalized weakness noted-proximal and distal Speech: speech normal Psych affect normal Psych Narrative: Very pleasant, eye contact is good, patient interacts normally Weight / BMI Weight Weight: 61.9 kg Body Mass Index (BMI) 25.1 ABG / Lab / Microbiology Data 02/15/23 08:00 02/15/23 08:00 Laboratory: Laboratory Results - last 24 hr 02/14/23 18:00: Urine Color Yellow, Urine Clarity Sl. Cloudy, Urine pH 6.5, Ur Specific [place] 1.020, Urine Protein 500 H, Urine Glucose (UA) Normal, Urine Ketones 5 H, Urine Occult Blood 10 H, Urine Nitrite Negative, Urine Bilirubin Negative, Urine Urobilinogen Normal, Ur Leukocyte Esterase 25 H, Urine RBC 0-5 SEEN, Urine WBC 0-5 SEEN, Ur Squamous Epith Cells 0 SEEN, Urine Bacteria 0 SEEN, Urine Mucus 0 SEEN 02/14/23 18:05: WBC 6.0, RBC 4.33, Hgb 13.4, Hct 40.6, MCV 93.8, MCH 30.9, MCHC 33.0, RDW Std Deviation 49.2 H, RDW Coeff of Champ 14.3, Plt Count 337, MPV 9.6, Immature Gran % (Auto) 0.200, Neut % (Auto) 75.0 H, Lymph % (Auto) 15.1 L, [place] % (Auto) 8.1, Eos % (Auto) 1.3, Baso % (Auto) 0.3, Absolute Neuts (auto) 4.5, Absolute Lymphs (auto) 0.90, Nucleated RBC % 0, Sodium 141, Potassium 3.4 L, Chloride 104, Carbon Dioxide 31.0, Anion Gap 6, BUN 17, Creatinine 0.82, Estim Creat Clear Calc 38.95, Est GFR (MDRD) Af Amer 85, Est GFR (MDRD) Non-Af 70, BUN/Creatinine Ratio 20.7 H, Glucose 123 H, Calcium 9.2, Magnesium 1.8 02/15/23 08:00: WBC 5.7, RBC 3.78 L, Hgb 11.7 L, Hct 36.8 L, MCV 97.4, MCH 31.0, MCHC 31.8 L, RDW Std Deviation 51.7 H, RDW Coeff of Champ 14.5, Plt Count 297, MPV 9.6, Immature Gran % (Auto) 0.400, Neut % (Auto) 72.2 H, Lymph % (Auto) 16.3 L, [place] % (Auto) 8.3, Eos % (Auto) 2.3, Baso % (Auto) 0.5, Absolute Neuts (auto) 4.1, Absolute Lymphs (auto) 0.92, Nucleated RBC % 0, Sodium 142, Potassium 3.8, Chloride 110 H, Carbon Dioxide 26.0, Anion Gap 6, BUN 18, Creatinine 0.89, Estim Creat Clear Calc 35.89, Est GFR (MDRD) Af Amer 77, Est GFR (MDRD) Non-Af 64, BUN/Creatinine Ratio 20.2 H, Glucose 99, Calcium 9.2, Total Bilirubin 0.70, AST 24, ALT 26, Alkaline Phosphatase 82, Total Protein 5.5 L, Albumin 3.1 L, Globulin 2.4, Albumin/Globulin Ratio 1.3, TSH 0.78, Free T4 1.25 Microbiology: Microbiology 02/14/23 17:50 Nasal Secretion SARS-CoV-2 & FLU Antigen (Rapid) - Final Radiography Diagnostic Testing: Radiology Impression Brain CT 02/14/23 17:36 IMPRESSION: Chronic involutional changes of the brain. Electronically Signed: Dewey Banks MD at 18:33 EST , Chest X-Ray 02/14/23 18:06 IMPRESSION: Right middle lobe infiltrate or collapse. Consider CT for further evaluation. Left perihilar and lower lung atelectasis or infiltrate. Electronically Signed: Dewey Banks MD at 18:36 EST , Chest CTA 02/14/23 19:34 IMPRESSION: CTA chest examination, without a demonstrated pulmonary embolism or arterial dissection. Left mid and bilateral lower lung scarring or atelectasis. Prominent epicardial fat pad and elevation of the right hemidiaphragm contributing to x-ray abnormality. Electronically Signed: Dewey Banks MD at 21:29 EST , D/C Instructions Discharge Diet: Low fat / Low cholesterol Discharge Activity: Return to Normal Activity Meaningful Use Info Meaningful Use Diagnoses (Choose all that apply): None applicable Discharge Plan Admission Admit Date/Time: 02/14/23 21:56 Primary Reason for Your Visit: Weakness Attending Provider: Cinthia Santoyo Primary Care Provider: Ilan Rob Consulting Providers: Katharine Sorto Discharge Orders/Prescriptions Prescriptions: Continued atorvastatin 40 mg tablet 40 mg PO DAILY albuterol sulfate 2.5 mg /3 mL (0.083 %) solution for nebulization buspirone 10 mg tablet 10 mg PO DAILY carvedilol 25 mg tablet 25 mg PO BID gabapentin 400 mg capsule 400 mg PO TID lisinopril 40 mg tablet 40 mg PO DAILY omeprazole 20 mg capsule,delayed release(DR/EC) 20 mg PO BID torsemide 10 mg tablet 10 mg PO DAILY aspirin [Adult Low Dose Aspirin] 81 mg tablet,delayed release (DR/EC) 81 mg PO DAILY sodium chloride 1,000 mg tablet,soluble 1,000 mg PO TID Discontinued doxycycline monohydrate 100 mg tablet 100 mg PO BID Referrals / Follow Up: Ilan Rob DO [Primary Care Provider] - Within 2 Weeks Disposition Disposition (needs filled in before D/C Order can be placed): Home Health Service Charges/Coding Visit Charges Inpatient E&M: 07426 Disch Hosp
[2023-02-15 14:17] VITALS: BP 145/58; PULSE 80; RESP 16; TEMP 36.6; O2SAT 96
[2023-02-15] MEDS: Acetaminophen 325 MG Tablet 650 MG PO (14:59)
[2023-02-15 18:30] VITALS: BP 159/58; PULSE 71; RESP 18; TEMP 36.7; O2SAT 93
== END 2023-02-15 18:42 | disposition home health service (06) ==
LOC: ED 22:08 → MS3 22:12
PROVIDERS: Admitting Provider Family Medicine; Emergency Provider Emergency Medicine; PCP Family Medicine; Visit Provider Internal Medicine
DX: R62.7 Adult failure to thrive (principal); Z79.82 Long term (current) use of aspirin; K59.09 Other constipation; R53.81 Other malaise; K21.9 Gastro-esophageal reflux disease without esophagitis; E87.1 Hypo-osmolality and hyponatremia; E78.5 Hyperlipidemia, unspecified; R73.9 Hyperglycemia, unspecified; F32.A Depression, unspecified; I10 Essential (primary) hypertension; R51.9 Headache, unspecified; F41.9 Anxiety disorder, unspecified; E87.6 Hypokalemia; Z79.899 Other long term (current) drug therapy; R53.1 Weakness; R91.8 Other nonspecific abnormal finding of lung field
CPT/HCPCS: 70450; 71046; 71275; 80048; 80053; 81001; 83735; 84439; 84443; 85025; 87086; 87428; 87633; 93005; 94668; 96361; 96372; 96374; 97162; 97166; 99221; 99252; 99285; J7040; Q9967; A4216; G0378; G0463; J2405

== ENCOUNTER 2024-01-26 16:28 | Inpatient (IN) | payer MEDICARE, SELFPAY ==
[2024-01-26 18:44] VITALS: BMI 28.6
[2024-01-26 21:13] VITALS: BP 163/65; PULSE 62; RESP 18; TEMP 36.7; O2SAT 93
[2024-01-26] MEDS: Menthol/Lanolin/Calamine/Znox 113 GM Tube 1 APPLIC TOPICAL (21:21)
[2024-01-26] MEDS: Nystatin Powder 15gm Bottle 1 APPLIC TOPICAL (21:21)
[2024-01-26] MEDS: busPIRone 5 MG Tablet 10 MG PO (21:22)
[2024-01-26] MEDS: cloNIDine HCl 0.1 MG Tablet PO (21:23)
[2024-01-26] MEDS: Carvedilol 25 MG Tablet PO (21:23)
[2024-01-26] MEDS: Sodium Chloride 1 GM Tablet PO (21:24)
[2024-01-26] MEDS: Gabapentin 400 MG Capsule PO (21:26)
[2024-01-27 05:44] LABS: Absolute Lymphocyte Count 1.21 X10^3/uL (0.83-4.51); Basophil# 0.03 X10^3/uL; Basophil% 0.5 % (0-1); Eosinophil# 0.33 X10^3/uL; Eosinophils% 5.4 % (0-5); Hematocrit 38.7 % (37-47); Hemoglobin 12.5 g/dL (12.0-15.0); Lymphocyte # 1.21 X10^3/ul (0.83-4.51); Lymphocyte % 19.8 % (19-41); Mean Corp Hgb Conc 32.3 g/dL (32-36); Mean Platelet Vol. 9.9 fl (6.2-12.0); Monocyte# 0.51 X10^3/uL; Monocyte% 8.3 % (0-10); NRBC Flagged by Analyzer 0 % (0-5); Neutrophil % 65.5 % (47-70); Platelet Count 248 K/mm3 (150-450); RBC Distribution Width CV 13.5 % (11.6-14.6); RBC Distribution Width SD 47.9 fl (35.1-43.9); Red Blood Count 4.03 M/mm3 (4.2-5.4); White Blood Count 6.1 K/mm3 (4.4-11.0)
[2024-01-27] MEDS: Sodium Chloride 1 GM Tablet PO ×3 (05:44→21:15)
[2024-01-27] MEDS: Gabapentin 400 MG Capsule PO ×3 (05:44→21:15)
[2024-01-27 07:12] LABS: Anion Gap 6 (5-15); BUN 33 mg/dL (7-18); BUN/Creat Ratio 35.3 RATIO (10-20); Calcium,Total 9.3 mg/dL (8.5-10.1); Chloride 104 mmol/L (98-107); Creatinine, Serum 0.93 mg/dL (0.55-1.02); EST Glomerular Filtration Rate 60 mL/min (>60); Est Glom Filt Rate - Afr Amer 73 mL/min (>60); Estimated Creatinine Clearance 39.58 ml/min; Glucose 144 mg/dL (74-106); Potassium 4.5 mmol/L (3.5-5.1); Sodium Level 138 mmol/L (136-145)
[2024-01-27] MEDS: Pantoprazole Sodium 40 MG Tablet PO (08:35)
[2024-01-27] MEDS: cloNIDine HCl 0.1 MG Tablet PO ×2 (08:35→21:14)
[2024-01-27] MEDS: Carvedilol 25 MG Tablet PO ×2 (08:35→21:14)
[2024-01-27] MEDS: Senna/Docusate Sodium 1 Tablet PO ×2 (08:35→21:15)
[2024-01-27] MEDS: Furosemide 20 MG Tablet PO (08:35)
[2024-01-27] MEDS: busPIRone 5 MG Tablet 10 MG PO ×2 (08:36→21:14)
[2024-01-27] MEDS: Menthol/Lanolin/Calamine/Znox 113 GM Tube 1 APPLIC TOPICAL ×2 (08:37→21:14)
[2024-01-27] MEDS: Nystatin Powder 15gm Bottle 1 APPLIC TOPICAL ×2 (08:37→21:14)
[2024-01-27] MEDS: Acetaminophen 500 MG Tablet 1000 MG PO ×2 (10:23→19:53)
[2024-01-27] MEDS: Losartan Potassium 100 MG Tablet PO (10:23)
[2024-01-27] MEDS: amLODIPine 10 MG Tablet PO (10:23)
[2024-01-27] MEDS: Tuberculin,Purif.prot.deriv. 50 TU/ML Vial 0.1 ML ID (10:25)
[2024-01-27 15:55] VITALS: BP 121/58; PULSE 55; RESP 20; TEMP 35.9; O2SAT 96
[2024-01-27] MEDS: Tamsulosin HCl 0.4 MG Capsule PO (17:05)
[2024-01-27 20:00] VITALS: PULSE 64; O2SAT 95
[2024-01-27 21:10] VITALS: BP 151/60; PULSE 60
[2024-01-27] MEDS: Atorvastatin Calcium 40 MG Tablet PO (21:14)
[2024-01-28] MEDS: Sodium Chloride 1 GM Tablet PO ×3 (05:50→20:50)
[2024-01-28] MEDS: Gabapentin 400 MG Capsule PO ×3 (05:50→20:50)
[2024-01-28] MEDS: Enoxaparin 40 MG/0.4 ML Syringe SC (05:50)
[2024-01-28] MEDS: Senna/Docusate Sodium 1 Tablet PO ×2 (08:17→20:50)
[2024-01-28] MEDS: Carvedilol 25 MG Tablet PO ×2 (08:18→20:50)
[2024-01-28] MEDS: cloNIDine HCl 0.1 MG Tablet PO ×2 (08:18→20:50)
[2024-01-28] MEDS: Furosemide 20 MG Tablet PO (08:18)
[2024-01-28] MEDS: Losartan Potassium 100 MG Tablet PO (08:18)
[2024-01-28] MEDS: Pantoprazole Sodium 40 MG Tablet PO (08:18)
[2024-01-28] MEDS: busPIRone 5 MG Tablet 10 MG PO ×2 (08:18→20:50)
[2024-01-28] MEDS: Nystatin Powder 15gm Bottle 1 APPLIC TOPICAL ×2 (08:19→20:51)
[2024-01-28] MEDS: Menthol/Lanolin/Calamine/Znox 113 GM Tube 1 APPLIC TOPICAL ×2 (08:19→20:51)
[2024-01-28] MEDS: amLODIPine 10 MG Tablet PO (08:25)
[2024-01-28 09:41] VITALS: BP 158/59; PULSE 65; RESP 20; O2SAT 95
[2024-01-28] MEDS: Tamsulosin HCl 0.4 MG Capsule PO (17:07)
[2024-01-28] MEDS: Atorvastatin Calcium 40 MG Tablet PO (20:50)
[2024-01-29] MEDS: Enoxaparin 40 MG/0.4 ML Syringe SC (05:36)
[2024-01-29] MEDS: Sodium Chloride 1 GM Tablet PO ×3 (05:36→20:56)
[2024-01-29] MEDS: Gabapentin 400 MG Capsule PO ×2 (05:37→13:19)
[2024-01-29 08:00] VITALS: BP 154/55; PULSE 66; RESP 18; O2SAT 95
[2024-01-29] MEDS: Carvedilol 25 MG Tablet PO ×2 (08:14→20:54)
[2024-01-29] MEDS: cloNIDine HCl 0.1 MG Tablet PO ×2 (08:14→20:52)
[2024-01-29] MEDS: Senna/Docusate Sodium 1 Tablet PO ×2 (08:15→20:56)
[2024-01-29] MEDS: busPIRone 5 MG Tablet 10 MG PO ×2 (08:15→20:54)
[2024-01-29] MEDS: Nystatin Powder 15gm Bottle 1 APPLIC TOPICAL ×2 (08:15→20:55)
[2024-01-29] MEDS: Pantoprazole Sodium 40 MG Tablet PO (08:15)
[2024-01-29] MEDS: Furosemide 20 MG Tablet PO (08:15)
[2024-01-29] MEDS: Losartan Potassium 100 MG Tablet PO (08:15)
[2024-01-29] MEDS: Menthol/Lanolin/Calamine/Znox 113 GM Tube 1 APPLIC TOPICAL ×2 (08:16→20:53)
[2024-01-29] MEDS: amLODIPine 10 MG Tablet PO (08:18)
[2024-01-29 13:14] VITALS: BP 129/50; PULSE 63; RESP 18; TEMP 36.4; O2SAT 94
[2024-01-29 15:55] VITALS: TEMP 36.2
[2024-01-29] MEDS: Tamsulosin HCl 0.4 MG Capsule PO (16:48)
[2024-01-29] MEDS: COVID VAC 24-25 (12UP)(MODERNA)/PF 50 MCG/0.5 ML SYRINGE IM (16:48)
[2024-01-29 20:00] VITALS: PULSE 74; O2SAT 93
[2024-01-29 20:45] VITALS: BP 159/67; PULSE 72
[2024-01-29] MEDS: Atorvastatin Calcium 40 MG Tablet PO (20:55)
[2024-01-29] MEDS: Gabapentin 300 MG Capsule PO (21:01)
[2024-01-30] MEDS: Gabapentin 300 MG Capsule PO ×3 (05:19→21:03)
[2024-01-30] MEDS: Sodium Chloride 1 GM Tablet PO ×3 (05:19→20:59)
[2024-01-30] MEDS: Enoxaparin 40 MG/0.4 ML Syringe SC (05:19)
[2024-01-30 06:51] LABS: Cholesterol 153 mg/dL (200); High Density Lipoprotein 51 mg/dL; Triglycerides 109 mg/dL; Very Low Density Lipoprotein 22 mg/dL (5-40)
[2024-01-30] MEDS: busPIRone 5 MG Tablet 10 MG PO ×2 (09:22→20:59)
[2024-01-30] MEDS: amLODIPine 10 MG Tablet PO (09:22)
[2024-01-30] MEDS: cloNIDine HCl 0.1 MG Tablet PO ×2 (09:22→20:59)
[2024-01-30] MEDS: Senna/Docusate Sodium 1 Tablet PO ×2 (09:22→20:59)
[2024-01-30] MEDS: Pantoprazole Sodium 40 MG Tablet PO (09:23)
[2024-01-30] MEDS: Carvedilol 25 MG Tablet PO ×2 (09:23→21:00)
[2024-01-30] MEDS: Nystatin Powder 15gm Bottle 1 APPLIC TOPICAL ×2 (09:23→20:58)
[2024-01-30] MEDS: Menthol/Lanolin/Calamine/Znox 113 GM Tube 1 APPLIC TOPICAL ×2 (09:23→20:58)
[2024-01-30] MEDS: Furosemide 20 MG Tablet PO (09:23)
[2024-01-30] MEDS: Losartan Potassium 100 MG Tablet PO (09:23)
[2024-01-30] MEDS: Acetaminophen 500 MG Tablet 1000 MG PO (09:25)
[2024-01-30 12:59] VITALS: BP 164/50; PULSE 73; RESP 16; TEMP 36.6; O2SAT 95
[2024-01-30] MEDS: Tamsulosin HCl 0.4 MG Capsule PO (16:49)
[2024-01-30 16:57] VITALS: BMI 28.2
[2024-01-30 20:56] VITALS: BP 166/66; PULSE 78
[2024-01-30] MEDS: Atorvastatin Calcium 40 MG Tablet PO (21:00)
[2024-01-31] MEDS: Sodium Chloride 1 GM Tablet PO ×3 (05:28→20:49)
[2024-01-31] MEDS: Enoxaparin 40 MG/0.4 ML Syringe SC (05:28)
[2024-01-31] MEDS: Gabapentin 300 MG Capsule PO ×3 (05:31→20:53)
[2024-01-31] MEDS: Mag Hydrox/Al Hydrox/Simeth 30 ML UDC PO (06:27)
[2024-01-31] MEDS: Menthol/Lanolin/Calamine/Znox 113 GM Tube 1 APPLIC TOPICAL ×2 (10:00→20:47)
[2024-01-31] MEDS: busPIRone 5 MG Tablet 10 MG PO ×2 (10:00→20:47)
[2024-01-31] MEDS: Nystatin Powder 15gm Bottle 1 APPLIC TOPICAL ×2 (10:01→20:48)
[2024-01-31] MEDS: cloNIDine HCl 0.1 MG Tablet PO ×2 (10:01→20:47)
[2024-01-31] MEDS: Losartan Potassium 100 MG Tablet PO (10:01)
[2024-01-31] MEDS: Carvedilol 25 MG Tablet PO ×2 (10:01→20:48)
[2024-01-31] MEDS: Furosemide 20 MG Tablet PO (10:01)
[2024-01-31] MEDS: amLODIPine 10 MG Tablet PO (10:02)
[2024-01-31] MEDS: Pantoprazole Sodium 40 MG Tablet PO (10:02)
[2024-01-31] MEDS: Senna/Docusate Sodium 1 Tablet PO ×2 (10:02→20:49)
[2024-01-31 10:06] VITALS: BP 178/63; PULSE 72; O2SAT 97
[2024-01-31 11:37] VITALS: BP 154/59
[2024-01-31 14:00] VITALS: PULSE 75; RESP 18; O2SAT 95
[2024-01-31 14:03] VITALS: BP 170/82; PULSE 75
[2024-01-31 15:55] VITALS: RESP 24; TEMP 36.7
[2024-01-31] MEDS: Tamsulosin HCl 0.4 MG Capsule PO (16:55)
[2024-01-31 20:45] VITALS: BP 162/61; PULSE 74
[2024-01-31] MEDS: Atorvastatin Calcium 40 MG Tablet PO (20:50)
[2024-01-31] MEDS: Acetaminophen 500 MG Tablet 1000 MG PO (20:53)
[2024-02-01] MEDS: Sodium Chloride 1 GM Tablet PO ×3 (05:29→19:41)
[2024-02-01] MEDS: Gabapentin 300 MG Capsule PO ×3 (05:29→19:41)
[2024-02-01] MEDS: Enoxaparin 40 MG/0.4 ML Syringe SC (05:29)
[2024-02-01 09:01] VITALS: BP 124/50; PULSE 69; RESP 16; TEMP 36.7; O2SAT 95
[2024-02-01] MEDS: cloNIDine HCl 0.1 MG Tablet PO ×2 (09:03→19:41)
[2024-02-01] MEDS: Losartan Potassium 100 MG Tablet PO (09:03)
[2024-02-01] MEDS: busPIRone 5 MG Tablet 10 MG PO ×2 (09:03→19:40)
[2024-02-01] MEDS: Pantoprazole Sodium 40 MG Tablet PO (09:04)
[2024-02-01] MEDS: Furosemide 20 MG Tablet PO (09:04)
[2024-02-01] MEDS: Carvedilol 25 MG Tablet PO ×2 (09:04→19:41)
[2024-02-01] MEDS: amLODIPine 10 MG Tablet PO (09:04)
[2024-02-01] MEDS: Nystatin Powder 15gm Bottle 1 APPLIC TOPICAL ×2 (09:05→19:40)
[2024-02-01] MEDS: Menthol/Lanolin/Calamine/Znox 113 GM Tube 1 APPLIC TOPICAL ×2 (09:05→19:41)
[2024-02-01] MEDS: Senna/Docusate Sodium 1 Tablet PO ×2 (09:05→19:41)
[2024-02-01] MEDS: Mag Hydrox/Al Hydrox/Simeth 30 ML UDC PO (09:07)
[2024-02-01 13:40] VITALS: BP 113/50; PULSE 70
[2024-02-01] MEDS: Tamsulosin HCl 0.4 MG Capsule PO (16:32)
[2024-02-01] MEDS: Atorvastatin Calcium 40 MG Tablet PO (19:41)
[2024-02-02 06:11] LABS: Absolute Lymphocyte Count 1.07 X10^3/uL (0.83-4.51); Absolute Neutrophil Count 2.9 X10^3/uL (2.0-7.7); Basophil# 0.03 X10^3/uL; Basophil% 0.6 % (0-1); Eosinophil# 0.24 X10^3/uL; Eosinophils% 5.1 % (0-5); Hematocrit 41.8 % (37-47); Hemoglobin 13.8 g/dL (12.0-15.0); Lymphocyte # 1.07 X10^3/ul (0.83-4.51); Lymphocyte % 22.9 % (19-41); Mean Corpuscular Hgb 30.9 pg (27.0-32.0); Mean Corpuscular Volume 93.5 fL (81-99); Monocyte# 0.44 X10^3/uL; Monocyte% 9.4 % (0-10); NRBC Flagged by Analyzer 0 % (0-5); Neutrophil # 2.87 X10^3/uL (2.7-7.7); Neutrophil % 61.6 % (47-70); Platelet Count 231 K/mm3 (150-450); RBC Distribution Width CV 13.7 % (11.6-14.6); RBC Distribution Width SD 46.7 fl (35.1-43.9); Red Blood Count 4.47 M/mm3 (4.2-5.4); White Blood Count 4.7 K/mm3 (4.4-11.0)
[2024-02-02 06:26] LABS: Anion Gap 5 (5-15); BUN 26 mg/dL (7-18); BUN/Creat Ratio 27.4 RATIO (10-20); Calcium,Total 9.9 mg/dL (8.5-10.1); Chloride 103 mmol/L (98-107); Creatinine, Serum 0.95 mg/dL (0.55-1.02); EST Glomerular Filtration Rate 59 mL/min (>60); Est Glom Filt Rate - Afr Amer 72 mL/min (>60); Estimated Creatinine Clearance 38.61 ml/min; Glucose 141 mg/dL (74-106); Potassium 4.6 mmol/L (3.5-5.1); Sodium Level 137 mmol/L (136-145)
[2024-02-02] MEDS: Sodium Chloride 1 GM Tablet PO ×3 (06:49→20:17)
[2024-02-02] MEDS: Enoxaparin 40 MG/0.4 ML Syringe SC (06:49)
[2024-02-02] MEDS: Gabapentin 300 MG Capsule PO ×3 (06:49→20:20)
[2024-02-02] MEDS: Carvedilol 25 MG Tablet PO ×2 (07:55→20:17)
[2024-02-02] MEDS: cloNIDine HCl 0.1 MG Tablet PO ×2 (07:55→20:17)
[2024-02-02] MEDS: amLODIPine 10 MG Tablet PO (07:55)
[2024-02-02] MEDS: Losartan Potassium 100 MG Tablet PO (07:55)
[2024-02-02] MEDS: Pantoprazole Sodium 40 MG Tablet PO (07:55)
[2024-02-02] MEDS: Senna/Docusate Sodium 1 Tablet PO ×2 (07:55→20:18)
[2024-02-02] MEDS: Menthol/Lanolin/Calamine/Znox 113 GM Tube 1 APPLIC TOPICAL ×2 (07:56→20:16)
[2024-02-02] MEDS: Furosemide 20 MG Tablet PO (07:56)
[2024-02-02] MEDS: busPIRone 5 MG Tablet 10 MG PO ×2 (07:56→20:17)
[2024-02-02] MEDS: Nystatin Powder 15gm Bottle 1 APPLIC TOPICAL ×2 (07:56→20:16)
[2024-02-02 08:39] VITALS: BP 149/63; PULSE 73; RESP 16; TEMP 36.8; O2SAT 94
[2024-02-02] MEDS: Tamsulosin HCl 0.4 MG Capsule PO (18:19)
[2024-02-02] MEDS: Atorvastatin Calcium 40 MG Tablet PO (20:17)
[2024-02-03] MEDS: Enoxaparin 40 MG/0.4 ML Syringe SC (06:10)
[2024-02-03] MEDS: Gabapentin 300 MG Capsule PO ×3 (06:10→22:42)
[2024-02-03] MEDS: Mag Hydrox/Al Hydrox/Simeth 30 ML UDC PO ×2 (06:10→22:43)
[2024-02-03] MEDS: Sodium Chloride 1 GM Tablet PO ×3 (06:11→22:42)
[2024-02-03 08:58] VITALS: BP 139/54; PULSE 68; RESP 17; TEMP 36.6; O2SAT 97
[2024-02-03] MEDS: Menthol/Lanolin/Calamine/Znox 113 GM Tube 1 APPLIC TOPICAL ×2 (09:02→22:41)
[2024-02-03] MEDS: busPIRone 5 MG Tablet 10 MG PO ×2 (09:02→22:41)
[2024-02-03] MEDS: cloNIDine HCl 0.1 MG Tablet PO ×2 (09:02→22:42)
[2024-02-03] MEDS: Carvedilol 25 MG Tablet PO ×2 (09:02→22:42)
[2024-02-03] MEDS: amLODIPine 10 MG Tablet PO (09:03)
[2024-02-03] MEDS: Losartan Potassium 100 MG Tablet PO (09:03)
[2024-02-03] MEDS: Pantoprazole Sodium 40 MG Tablet PO (09:03)
[2024-02-03] MEDS: Nystatin Powder 15gm Bottle 1 APPLIC TOPICAL ×2 (09:03→22:42)
[2024-02-03] MEDS: Furosemide 20 MG Tablet PO (09:03)
[2024-02-03] MEDS: Tuberculin,Purif.prot.deriv. 50 TU/ML Vial 0.1 ML ID (09:04)
[2024-02-03] MEDS: Senna/Docusate Sodium 1 Tablet PO ×2 (09:04→22:42)
[2024-02-03] MEDS: Tamsulosin HCl 0.4 MG Capsule PO (17:16)
[2024-02-03 22:36] VITALS: BP 162/66; PULSE 67
[2024-02-03] MEDS: Atorvastatin Calcium 40 MG Tablet PO (22:42)
[2024-02-04] MEDS: Gabapentin 300 MG Capsule PO ×3 (05:57→20:41)
[2024-02-04] MEDS: Sodium Chloride 1 GM Tablet PO ×3 (05:57→20:41)
[2024-02-04] MEDS: Enoxaparin 40 MG/0.4 ML Syringe SC (05:57)
[2024-02-04 10:05] LABS: Bacteria 0 SEEN /hpf (None Seen); Mucous, Urine 0 SEEN /hpf (<or=2+); Red Blood Cells-Urine 0 SEEN /hpf (0-5); Squamous Epithelial Cells - UA 0 SEEN /hpf (5-10); White Blood Cells 0 SEEN /hpf (0-5)
[2024-02-04 10:23] LABS: Color, Urine Yellow (Yellow); Glucose, Dipstick Normal (Normal); Ketone-Dipstick Negative (Negative); Leukocyte Esterase-Dipstick Negative /ul (Negative); Nitrite-Dipstick Negative (Negative); Occult Blood-Urine Negative /ul (Negative); Protein-Dipstick 100 mg/dl (Negative); Urine Bilirubin Dipstick Negative (Negative); Urine Clarity Clear (Clear); Urine Urobilinogen Normal (Normal)
[2024-02-04 10:26] VITALS: BP 155/60; PULSE 67; RESP 18; TEMP 36.3; O2SAT 98
[2024-02-04] MEDS: busPIRone 5 MG Tablet 10 MG PO ×2 (10:28→20:40)
[2024-02-04] MEDS: Losartan Potassium 100 MG Tablet PO (10:29)
[2024-02-04] MEDS: Menthol/Lanolin/Calamine/Znox 113 GM Tube 1 APPLIC TOPICAL ×2 (10:29→20:40)
[2024-02-04] MEDS: cloNIDine HCl 0.1 MG Tablet PO ×2 (10:29→20:40)
[2024-02-04] MEDS: Carvedilol 25 MG Tablet PO ×2 (10:29→20:40)
[2024-02-04] MEDS: Nystatin Powder 15gm Bottle 1 APPLIC TOPICAL ×2 (10:30→20:44)
[2024-02-04] MEDS: Furosemide 20 MG Tablet PO (10:30)
[2024-02-04] MEDS: Pantoprazole Sodium 40 MG Tablet PO (10:30)
[2024-02-04] MEDS: Senna/Docusate Sodium 1 Tablet PO ×2 (10:30→20:41)
[2024-02-04] MEDS: amLODIPine 10 MG Tablet PO (10:30)
[2024-02-04] MEDS: Tamsulosin HCl 0.4 MG Capsule PO (17:18)
[2024-02-04 20:29] VITALS: BP 187/68; PULSE 71
[2024-02-04 20:39] VITALS: BP 192/65; PULSE 69
[2024-02-04] MEDS: Acetaminophen 500 MG Tablet 1000 MG PO (20:39)
[2024-02-04] MEDS: hydrALAZINE 10 MG Tablet PO (20:39)
[2024-02-04] MEDS: Atorvastatin Calcium 40 MG Tablet PO (20:40)
[2024-02-04] MEDS: MELATONIN 3 MG TABLET 1.5 MG PO (20:41)
[2024-02-04] MEDS: traZODone 50 MG Tablet PO (20:42)
[2024-02-05] MEDS: Gabapentin 300 MG Capsule PO ×3 (05:51→23:32)
[2024-02-05] MEDS: Sodium Chloride 1 GM Tablet PO ×3 (05:51→23:27)
[2024-02-05] MEDS: Enoxaparin 40 MG/0.4 ML Syringe SC (05:51)
[2024-02-05 08:00] VITALS: BP 134/87; PULSE 64; RESP 16; TEMP 36.6; O2SAT 95
[2024-02-05] MEDS: Carvedilol 25 MG Tablet PO ×2 (09:24→23:29)
[2024-02-05] MEDS: busPIRone 5 MG Tablet 10 MG PO ×2 (09:24→23:30)
[2024-02-05] MEDS: Losartan Potassium 100 MG Tablet PO (09:24)
[2024-02-05] MEDS: amLODIPine 10 MG Tablet PO (09:24)
[2024-02-05] MEDS: Menthol/Lanolin/Calamine/Znox 113 GM Tube 1 APPLIC TOPICAL ×2 (09:25→23:30)
[2024-02-05] MEDS: Furosemide 20 MG Tablet PO (09:25)
[2024-02-05] MEDS: Pantoprazole Sodium 40 MG Tablet PO (09:25)
[2024-02-05] MEDS: Nystatin Powder 15gm Bottle 1 APPLIC TOPICAL ×2 (09:25→23:27)
[2024-02-05] MEDS: Senna/Docusate Sodium 1 Tablet PO ×2 (09:25→23:27)
[2024-02-05] MEDS: cloNIDine HCl 0.1 MG Tablet PO ×2 (09:25→23:29)
[2024-02-05 09:26] VITALS: BP 134/87; PULSE 64
[2024-02-05] MEDS: hydrALAZINE 10 MG Tablet PO ×2 (09:26→23:26)
[2024-02-05 10:00] VITALS: PULSE 64; RESP 16; O2SAT 95
[2024-02-05] MEDS: Tamsulosin HCl 0.4 MG Capsule PO (17:19)
[2024-02-05 23:25] VITALS: BP 182/66; PULSE 74
[2024-02-05 23:26] VITALS: BP 182/66; PULSE 74
[2024-02-05] MEDS: Atorvastatin Calcium 40 MG Tablet PO (23:28)
[2024-02-05] MEDS: traZODone 50 MG Tablet PO (23:28)
[2024-02-05] MEDS: MELATONIN 3 MG TABLET 1.5 MG PO (23:32)
[2024-02-06] MEDS: Gabapentin 300 MG Capsule PO ×3 (05:40→22:47)
[2024-02-06] MEDS: Enoxaparin 40 MG/0.4 ML Syringe SC (05:41)
[2024-02-06] MEDS: Sodium Chloride 1 GM Tablet PO ×3 (05:41→22:46)
[2024-02-06 08:30] VITALS: BP 153/49; PULSE 72; RESP 18; TEMP 36.6; O2SAT 93
[2024-02-06] MEDS: Carvedilol 25 MG Tablet PO ×2 (08:56→22:43)
[2024-02-06] MEDS: Losartan Potassium 100 MG Tablet PO (08:56)
[2024-02-06] MEDS: Furosemide 20 MG Tablet PO (08:56)
[2024-02-06] MEDS: amLODIPine 10 MG Tablet PO (08:56)
[2024-02-06] MEDS: Senna/Docusate Sodium 1 Tablet PO ×2 (08:56→22:46)
[2024-02-06] MEDS: Pantoprazole Sodium 40 MG Tablet PO (08:56)
[2024-02-06] MEDS: cloNIDine HCl 0.1 MG Tablet PO ×2 (08:56→22:42)
[2024-02-06] MEDS: busPIRone 5 MG Tablet 10 MG PO ×2 (08:57→22:42)
[2024-02-06] MEDS: Nystatin Powder 15gm Bottle 1 APPLIC TOPICAL ×2 (08:57→22:45)
[2024-02-06] MEDS: Menthol/Lanolin/Calamine/Znox 113 GM Tube 1 APPLIC TOPICAL ×2 (08:57→22:42)
[2024-02-06 10:00] VITALS: PULSE 72
[2024-02-06] MEDS: Acetaminophen 500 MG Tablet 1000 MG PO (15:22)
[2024-02-06 16:00] VITALS: BMI 28.9
[2024-02-06] MEDS: Tamsulosin HCl 0.4 MG Capsule PO (17:03)
[2024-02-06 17:56] VITALS: BMI 28.9
[2024-02-06 22:38] VITALS: BP 183/73; PULSE 73
[2024-02-06 22:41] VITALS: BP 183/73; PULSE 73
[2024-02-06] MEDS: hydrALAZINE 10 MG Tablet PO (22:41)
[2024-02-06] MEDS: Atorvastatin Calcium 40 MG Tablet PO (22:44)
[2024-02-06] MEDS: traZODone 50 MG Tablet PO (22:44)
[2024-02-06] MEDS: MELATONIN 3 MG TABLET 1.5 MG PO (22:44)
[2024-02-07] MEDS: Sodium Chloride 1 GM Tablet PO ×3 (05:25→21:56)
[2024-02-07] MEDS: Gabapentin 300 MG Capsule PO ×3 (05:25→21:56)
[2024-02-07] MEDS: Enoxaparin 40 MG/0.4 ML Syringe SC (05:25)
[2024-02-07] MEDS: busPIRone 5 MG Tablet 10 MG PO ×2 (08:57→21:56)
[2024-02-07] MEDS: cloNIDine HCl 0.1 MG Tablet PO ×2 (08:57→21:56)
[2024-02-07] MEDS: Pantoprazole Sodium 40 MG Tablet PO (08:58)
[2024-02-07] MEDS: Furosemide 20 MG Tablet PO (08:58)
[2024-02-07] MEDS: Losartan Potassium 100 MG Tablet PO (08:58)
[2024-02-07] MEDS: Carvedilol 25 MG Tablet PO ×2 (08:58→21:56)
[2024-02-07] MEDS: amLODIPine 10 MG Tablet PO (08:58)
[2024-02-07] MEDS: Nystatin Powder 15gm Bottle 1 APPLIC TOPICAL ×2 (08:59→21:57)
[2024-02-07] MEDS: Senna/Docusate Sodium 1 Tablet PO ×2 (08:59→21:56)
[2024-02-07] MEDS: Acetaminophen 500 MG Tablet 1000 MG PO (09:01)
[2024-02-07] MEDS: Menthol/Lanolin/Calamine/Znox 113 GM Tube 1 APPLIC TOPICAL ×2 (09:04→21:59)
[2024-02-07 09:06] VITALS: BP 165/55; PULSE 65; O2SAT 98
[2024-02-07 10:05] VITALS: PULSE 67; RESP 18; O2SAT 94
[2024-02-07] MEDS: Mag Hydrox/Al Hydrox/Simeth 30 ML UDC PO (10:19)
[2024-02-07 16:00] VITALS: RESP 14; TEMP 36.4
[2024-02-07] MEDS: Tamsulosin HCl 0.4 MG Capsule PO (17:10)
[2024-02-07 21:50] VITALS: BP 168/75; PULSE 72
[2024-02-07] MEDS: traZODone 50 MG Tablet PO (21:56)
[2024-02-07] MEDS: Atorvastatin Calcium 40 MG Tablet PO (21:56)
[2024-02-07] MEDS: MELATONIN 3 MG TABLET 1.5 MG PO (21:56)
[2024-02-08] MEDS: Enoxaparin 40 MG/0.4 ML Syringe SC (06:26)
[2024-02-08] MEDS: Gabapentin 300 MG Capsule PO ×2 (06:26→13:06)
[2024-02-08] MEDS: Sodium Chloride 1 GM Tablet PO ×2 (06:26→13:07)
[2024-02-08] MEDS: Menthol/Lanolin/Calamine/Znox 113 GM Tube 1 APPLIC TOPICAL (09:30)
[2024-02-08] MEDS: busPIRone 5 MG Tablet 10 MG PO (09:30)
[2024-02-08] MEDS: Carvedilol 25 MG Tablet PO (09:30)
[2024-02-08] MEDS: cloNIDine HCl 0.1 MG Tablet PO (09:31)
[2024-02-08] MEDS: amLODIPine 10 MG Tablet PO (09:31)
[2024-02-08] MEDS: Senna/Docusate Sodium 1 Tablet PO (09:31)
[2024-02-08] MEDS: Losartan Potassium 100 MG Tablet PO (09:31)
[2024-02-08] MEDS: Furosemide 20 MG Tablet PO (09:31)
[2024-02-08] MEDS: Pantoprazole Sodium 40 MG Tablet PO (09:31)
[2024-02-08] MEDS: Nystatin Powder 15gm Bottle 1 APPLIC TOPICAL (09:32)
[2024-02-08 09:36] VITALS: BP 133/74; PULSE 68; O2SAT 96
[2024-02-08] MEDS: Acetaminophen 500 MG Tablet 1000 MG PO (13:06)
[2024-02-08 15:10] VITALS: PULSE 66; RESP 18; O2SAT 94
[2024-02-08 15:15] VITALS: BP 140/54; PULSE 66; RESP 18; TEMP 36.6; O2SAT 94
[2024-02-08] MEDS: Tamsulosin HCl 0.4 MG Capsule PO (16:27)
[2024-02-08 18:00] VITALS: BP 140/54; PULSE 66; RESP 18; TEMP 36.6; O2SAT 94
== END 2024-02-08 17:00 | disposition home health service (06) | DRG 699 ==
PROVIDERS: Internal Medicine; Admitting Provider Family Medicine Geriatric Medicine; PCP Family Medicine; Referring Provider Family Medicine Geriatric Medicine; Visit Provider Family Medicine Geriatric Medicine
DX: N32.0 Bladder-neck obstruction (principal); E87.1 Hypo-osmolality and hyponatremia; I50.32 Chronic diastolic (congestive) heart failure; N13.30 Unspecified hydronephrosis; G62.9 Polyneuropathy, unspecified; E78.5 Hyperlipidemia, unspecified; B35.4 Tinea corporis; I11.0 Hypertensive heart disease with heart failure; J44.9 Chronic obstructive pulmonary disease, unspecified; F41.9 Anxiety disorder, unspecified; K21.9 Gastro-esophageal reflux disease without esophagitis; Z79.82 Long term (current) use of aspirin; N94.89 Other specified conditions associated with female genital organs and menstrual cycle; Z79.899 Other long term (current) drug therapy; Z23 Encounter for immunization
CPT/HCPCS: 36415; 74018; 80048; 80061; 81001; 85025; 87811; 90480; 91322; 97110; 97116; 97162; 97166; 97530; 97535; 97802